=== PATIENT | female | born 1960 | race Caucasian/White ===

== ENCOUNTER 2018-03-20 10:50 | Emergency (ER) | payer OTHER ==
--- NOTE | 2018-03-20 11:11 | CPEKG ---
Heart Rate: 62 RR Interval: 968 P-R Interval: 164 QRSD Interval: 88 QT Interval: 420 QTC Interval: 427 P Reno: 73 QRS Reno: 62 T Wave Reno: 32 EKG Severity - BORDERLINE ECG - EKG Impression: SINUS RHYTHM EKG Impression: PROBABLE LEFT ATRIAL ABNORMALITY Electronically Signed By: Chuck Novak 20-Mar-2018 12:49:28
[2018-03-20] MEDS ORDERED: ASPIRIN 81 MG CHEWABLE TAB PO ONE (11:12)
--- NOTE | 2018-03-20 11:16 | EDPHY ---
H & P Stated Complaint: chest pressure for 2 weeks since moving here for job Time Seen by Provider: 03/20/18 10:57 HPI/ROS: CHIEF COMPLAINT: Chest pressure x2 weeks HISTORY OF PRESENT ILLNESS: 57-year-old female arrives via private vehicle complaining of intermittent chest pain for the past 2 weeks. She is unable to identify specific pattern. It started 2 weeks ago when she awoke feeling as if "somebody was grabbing my heart". She has noticed intermittent sharp stabbing episodes of chest pain which last between 1-2 seconds, are not necessarily related to inspiration. She also notes dyspnea, having to take a few extra breaths. She has started to exercise regularly, she walked for 15 min on a treadmill few days ago described as exertional and did not experience chest pain with exertion or dyspnea with exertion beyond that expected with exercise. She contacted a new PCP today who recommend she go to the ER for evaluation. Patient has a remote history of multiple myeloma diagnosed 7 years ago, completed treatment, in remission for the past several years. Patient recently moved here from [place], does note increase in job stress. REVIEW OF SYSTEMS: A ten point review of systems was performed and is negative with the exception of the items mentioned in the HPI PAST MEDICAL & SURGICAL HISTORY: History of zoster to the left facial region however no recent outbreaks. SOCIAL HISTORY: Nonsmoker. No drug use. No alcohol use. 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 FAMILY HISTORY: No no family history of coagulopathic disorder or coronary artery disease. PHYSICAL EXAM (Prior to examination, patient consented to physical exam, hands were washed and my usual and customary physical exam procedures followed) 1) GENERAL: Well-developed, well-nourished, alert and oriented. Appears to be in no acute distress. 2) HEAD: Normocephalic, atraumatic 3) HEENT: Sclera anicteric. 4) NECK: Full range of motion, No carotid bruit 5) LUNGS: Clear auscultation bilaterally, no wheezes, no rhonchi, no retractions. 6) HEART: Regular rate and rhythm, no murmur, no heave, no gallop. No lesions no vesicles no rash. 7) ABDOMEN: No guarding, no rebound, no focal tenderness, negative McBurney's, negative Barbosa's, negative Rovsing's, negative peritoneal sign, 8) MUSCULOSKELETAL: Moving all extremities, no focal areas of tenderness, no obvious trauma. No peripheral edema or discoloration. Negative Homans no palpable cord. No discoloration. 9) BACK: No CVA tenderness, no midline vertebral tenderness, no fluctuance, no step-off, no obvious trauma, no visual or palpable abnormality. 10) SKIN: No rash, no petechiae. 11) Psychiatric: Patient is oriented X 3, there is no agitation. DIFFERENTIAL DIAGNOSIS: In no particular order, including but not limited to myocardial ischemia, pulmonary embolus, chest wall pain, pleural inflammation and pulmonary infectious causes. - Personal History Current Tetanus Diphtheria and Acellular Pertussis (TDAP): Yes - Medical/Surgical History Hx Asthma: Yes Hx Chronic Respiratory Disease: No Hx Diabetes: No Hx Cardiac Disease: No Hx Renal Disease: No Hx Cirrhosis: No Hx Alcoholism: No Hx HIV/AIDS: No Hx Splenectomy or Spleen Trauma: No Other PMH: asthma - Social History Smoking Status: Never smoked Constitutional: Initial Vital Signs Temperature (C) 36.6 C 03/20/18 10:53 Heart Rate 77 03/20/18 10:53 Respiratory Rate 18 03/20/18 10:53 Blood Pressure 135/85 H 03/20/18 10:53 O2 Sat (%) 96 03/20/18 10:53 O2 Delivery Mode Room Air Allergies/Adverse Reactions: azithromycin Allergy (Verified 03/20/18 10:52) cefaclor [From Ceclor] Allergy (Verified 03/20/18 10:51) cefprozil [From Cefzil] Allergy (Verified 03/20/18 10:51) iodine Allergy (Verified 03/20/18 10:52) all canes Allergy (Uncoded 03/20/18 10:51) all cyllins Allergy (Uncoded 03/20/18 10:51) Home Medications: Medication Instructions Recorded Flonase Allergy Relief 03/20/18 Valtrex 03/20/18 Medical Decision Making - Diagnostics Imaging Results: Imaging Impressions Chest X-Ray 03/20/18 11:12 Impression: Excellent inspiration. No source for chest pain identified. Images reviewed myself ED Course/Re-evaluation: 11:14 a.m.: I saw this patient independently based on established practice protocols. Care of patient under supervision of primary Supervising physician Dr Bruno Novak with whom I discussed case. 12:11 p.m.: Re-evaluation, discussed her laboratory studies which include negative D-dimer which I think adequately excludes pulmonary embolus in this patient whom I have a moderate pretest suspicion for pulmonary embolus. She is also noted to have negative troponin . I think that MO is less than likely in this patient given the longevity of her symptoms, negative troponin, no chest pain with exertion. The specific etiology of her intermittent chest pain is incompletely clear at this point. I do not think that emergent cardiology consultation or hospitalization is indicated. I have recommended follow-up with her PCP and with Cardiology. Usual and customary chest pain precautions instructions provided. She feels comfortable being discharged. - Data Points Laboratory Results: Laboratory Results 03/20/18 11:10 03/20/18 11:10 03/20/18 03/20/18 03/20/18 11:19 11:10 11:10 WBC RBC Hgb Hct MCV MCH MCHC RDW Plt Count MPV Neut % (Auto) Lymph % (Auto) [place] % (Auto) Eos % (Auto) Baso % (Auto) Nucleat RBC Rel Count Absolute Neuts (auto) Absolute Lymphs (auto) Absolute Monos (auto) Absolute Eos (auto) Absolute Basos (auto) Absolute Nucleated RBC Immature Gran % Immature Gran # D-Dimer < 0.27 ug/mLFEU ug/mLFEU (0.00-0.50) Sodium 142 mEq/L mEq/L (135-145) Potassium 4.0 mEq/L mEq/L (3.3-5.0) Chloride 105 mEq/L mEq/L (97-110) Carbon Dioxide 22 mEq/l mEq/l (22-31) Anion Gap 15 mEq/L mEq/L (8-16) BUN 18 mg/dL mg/dL (7-23) Creatinine 0.8 mg/dL mg/dL (0.6-1.0) Estimated GFR > 60 Glucose 85 mg/dL mg/dL (70-100) Calcium 9.5 mg/dL mg/dL (8.5-10.4) Total Bilirubin 0.6 mg/dL mg/dL (0.1-1.4) Conjugated Bilirubin 0.4 mg/dL mg/dL (0.0-0.5) Unconjugated Bilirubin 0.2 mg/dL mg/dL (0.0-1.1) AST 26 IU/L IU/L (14-46) ALT 33 IU/L IU/L (9-52) Alkaline Phosphatase 75 IU/L IU/L (38-126) POC Troponin I 0.00 ng/mL ng/mL (0.00-0.08) Total Protein 7.1 g/dL g/dL (6.3-8.2) Albumin 4.4 g/dL g/dL (3.5-5.0) Lipase 204 IU/L IU/L (23-300) 03/20/18 11:10 WBC 7.55 10^3/uL 10^3/uL (3.80-9.50) RBC 4.64 10^6/uL 10^6/uL (4.18-5.33) Hgb 14.5 g/dL g/dL (12.6-16.3) Hct 42.5 % % (38.0-47.0) MCV 91.6 fL fL (81.5-99.8) MCH 31.3 pg pg (27.9-34.1) MCHC 34.1 g/dL g/dL (32.4-36.7) RDW 12.1 % % (11.5-15.2) Plt Count 253 10^3/uL 10^3/uL (150-400) MPV 9.7 fL fL (8.7-11.7) Neut % (Auto) 49.3 % % (39.3-74.2) Lymph % (Auto) 38.3 % % (15.0-45.0) [place] % (Auto) 8.2 % % (4.5-13.0) Eos % (Auto) 3.4 % % (0.6-7.6) Baso % (Auto) 0.7 % % (0.3-1.7) Nucleat RBC Rel Count 0.0 % % (0.0-0.2) Absolute Neuts (auto) 3.72 10^3/uL 10^3/uL (1.70-6.50) Absolute Lymphs (auto) 2.89 10^3/uL 10^3/uL (1.00-3.00) Absolute Monos (auto) 0.62 10^3/uL 10^3/uL (0.30-0.80) Absolute Eos (auto) 0.26 10^3/uL 10^3/uL (0.03-0.40) Absolute Basos (auto) 0.05 10^3/uL 10^3/uL (0.02-0.10) Absolute Nucleated RBC 0.00 10^3/uL 10^3/uL (0-0.01) Immature Gran % 0.1 % % (0.0-1.1) Immature Gran # 0.01 10^3/uL 10^3/uL (0.00-0.10) D-Dimer Sodium Potassium Chloride Carbon Dioxide Anion Gap BUN Creatinine Estimated GFR Glucose Calcium Total Bilirubin Conjugated Bilirubin Unconjugated Bilirubin AST ALT Alkaline Phosphatase POC Troponin I Total Protein Albumin Lipase Medications Given: Discontinued Medications Aspirin (Aspirin) 324 mg PO EDNOW ONE Stop: 03/20/18 11:13 Last Admin: 03/20/18 11:26 Dose: 324 mg Point of Care Test Results: Chemistry 03/20/18 11:19 POC Troponin I 0.00 ng/mL ng/mL (0.00-0.08) Departure - Departure Disposition: Home, Routine, Self-Care Clinical Impression: Chest pain Condition: Good Instructions: Chest Pain (ED) Additional Instructions: Seek medical attention if you develop new or worsening chest pain, if you develop new or worsening shortness of breath, or any other symptoms that concern you. Referrals: Ana Maria Mai MD [Primary Care Provider] - 1-2 days without fail Eldon Boo MD [Medical Doctor] - As per Instructions
[2018-03-20 11:25] LABS: PLATELET COUNT 253 10^3/uL (150-400)
[2018-03-20 12:17] VITALS: BP 121/77
== END 2018-03-20 12:19 | disposition home or self-care (01) ==
DX: R07.9 Chest pain, unspecified (principal); J45.909 Unspecified asthma, uncomplicated
CPT/HCPCS: 84484-PO

== ENCOUNTER → 2018-06-13 | Outpatient (CLI) | payer OTHER | LOC: FIMAGING 07:27 | PROVIDERS: ATTEND Internal Medicine | DX: Z12.31 Encounter for screening mammogram for malignant neoplasm of breast (principal) ==